=== PATIENT | male | born 1990 | race African-American/Black ===

== ENCOUNTER 2019-02-16 19:17 | Emergency (ER) | payer OTHER, SELFPAY ==
--- NOTE | 2019-02-16 19:55 | ER ---
Nurse's Notes [facility] Name: Rowdy De La O Jr Age: 28 yrs Sex: Male : 1990 Arrival Date: 02/16/2019 Time: 19:19 Bed 24 Private MD: Diagnosis: Foreign body sensation in throat Presentation: 02/16 19:26 Presenting complaint: Patient states: possible ingestion of toothpick on Saturday. pt ak1 c/o scratchy throat on Saturday. no drooling noted, no resp distress noted. Transition of care: patient was not received from another setting of care. Onset of symptoms is unknown. Risk Assessment: Do you want to hurt yourself or someone else? Patient reports no desire to harm self or others. Initial Sepsis Screen: Does the patient meet any 2 criteria? No. Patient's initial sepsis screen is negative. Does the patient have a suspected source of infection? No. Patient's initial sepsis screen is negative. Care prior to arrival: None. 19:26 Method Of Arrival: Ambulatory ak1 19:26 Acuity: MT 4 ak1 Triage Assessment: 19:27 General: Appears in no apparent distress. Behavior is calm, cooperative. Pain: ak1 Complains of pain in neck. EENT: Throat is clear. Neuro: No deficits noted. Cardiovascular: No deficits noted. Respiratory: No deficits noted. GI: No signs and/or symptoms were reported involving the gastrointestinal system. : No signs and/or symptoms were reported regarding the genitourinary system. Derm: No signs and/or symptoms reported regarding the dermatologic system. Musculoskeletal: No signs and/or symptoms reported regarding the musculoskeletal system. Historical: - Allergies: 19:27 No Known Allergies; ak1 - Home Meds: 19:27 None [Active]; ak1 - PMHx: 19:27 None; ak1 - PSHx: 19:27 left shoulder sx; ak1 - Immunization history:: Adult Immunizations unknown. - Social history:: Smoking status: Patient/guardian denies using tobacco. - Ebola Screening: : No symptoms or risks identified at this time. - Family history:: not pertinent. - Hospitalizations: : No recent hospitalization is reported. Screenin:28 Abuse screen: Denies threats or abuse. Denies injuries from another. Nutritional ak1 screening: No deficits noted. Tuberculosis screening: No symptoms or risk factors identified. Fall Risk None identified. Assessment: 19:35 Reassessment: See Triage assessment. ca1 20:03 Reassessment: Patient appears in no apparent distress at this time. Patient and/or ca1 family updated on plan of care and expected duration. Pain level reassessed. Patient is alert, oriented x 3, equal unlabored respirations, skin warm/dry/pink. 20:06 Reassessment: patient refused to undergo CT scan. advised to seek consult with ENT rv doctor after discharge. Vital Signs: 19:27 BP 140 / 87; Pulse 71; Resp 16; Temp 99.1; Pulse Ox 100% on R/A; Weight 86.18 kg (R); ak1 Height 5 ft. 11 in. (180.34 cm) (R); Pain 0/10; 19:27 Body Mass Index 26.50 (86.18 kg, 180.34 cm) ak1 ED Course: 19:19 Patient arrived in ED. ag3 19:27 Triage completed. ak1 19:27 Arm band placed on Patient placed in an exam room, on a stretcher, Patient notified of ak1 wait time. 19:28 Patient has correct armband on for positive identification. Bed in low position. Call ak1 light in reach. Side rails up X 1. 19:29 Joleen Galindo RN is Primary Nurse. ca1 19:38 Wayne Lr MD is Attending Physician. rn 19:54 Ernestina Molina MD is Referral Physician. rn 20:07 No provider procedures requiring assistance completed. Patient did not have IV access ca1 during this emergency room visit. Administered Medications: No medications were administered Outcome: 19:55 Discharge ordered by . rn 20:07 Discharged to home ambulatory. rv 20:07 Condition: good 20:07 Discharge instructions given to patient, family, Instructed on discharge instructions, follow up and referral plans. Demonstrated understanding of instructions, follow-up care. 20:08 Patient left the ED. rv Signatures: Wayne Lr MD MD rn Krenek, Amber, RN RN ak1 Rolando Boston RN RN Daysi Weller 3 Joleen Galindo RN RN ca1 Corrections: (The following items were deleted from the chart) 20:06 20:06 Reassessment: [facility] ca1
--- NOTE | 2019-02-16 19:55 | EDPHYS ---
Physician Documentation [facility] Name: Rowdy De La O Jr Age: 28 yrs Sex: Male : 1990 Arrival Date: 02/16/2019 Time: 19:19 Bed 24 Private MD: ED Physician Wayne Lr HPI: 02/16 19:49 This 28 yrs old Black Male presents to ER via Ambulatory with complaints of Foreign rn Body In Throat. 19:49 The patient presents with a foreign body sensation in the throat. The patient describes rn throat pain as foreign body sensation. Onset: The symptoms/episode began/occurred yesterday. Severity of symptoms: At their worst the symptoms were mild, in the emergency department the symptoms are unchanged. Associated signs and symptoms: The patient has no apparent associated signs or symptoms, Pertinent negatives chest pain, chills, cough, diarrhea, dysphagia, fever, flu-like symptoms, rhinorrhea, shortness of breath. The patient has not experienced similar symptoms in the past. REports woke up yesterday with foreign body sensation in throat, does not recall event where he accidentally swallowed something, no fever, is eating fine, states just had pizza without problem, able to tolerate liquids. No trauma. Does not feel sick. NO hemoptysis or hematemesis.. Historical: - Allergies: 19:27 No Known Allergies; ak1 - Home Meds: 19:27 None [Active]; ak1 - PMHx: 19:27 None; ak1 - PSHx: 19:27 left shoulder sx; ak1 - Immunization history:: Adult Immunizations unknown. - Social history:: Smoking status: Patient/guardian denies using tobacco. - Ebola Screening: : No symptoms or risks identified at this time. - Family history:: not pertinent. - Hospitalizations: : No recent hospitalization is reported. ROS: 19:49 Constitutional: Negative for fever, chills, and weight loss, Eyes: Negative for injury, rn pain, redness, and discharge, ENT: + foreign body sensation in throat Neck: Negative for injury, pain, and swelling, Cardiovascular: Negative for chest pain, palpitations, and edema, Respiratory: Negative for shortness of breath, cough, wheezing, and pleuritic chest pain, Abdomen/GI: Negative for abdominal pain, nausea, vomiting, diarrhea, and constipation, MS/Extremity: Negative for injury and deformity, Neuro: Negative for headache, weakness, numbness, tingling, and seizure. Exam: 19:49 Constitutional: This is a well developed, well nourished patient who is awake, alert, rn and in no acute distress. Using phone, legs crossed in bed, looks very comfortable. Head/Face: Normocephalic, atraumatic. Eyes: Pupils equal round and reactive to light, extra-ocular motions intact. Lids and lashes normal. Conjunctiva and sclera are non-icteric and not injected. Cornea within normal limits. Periorbital areas with no swelling, redness, or edema. ENT: Nares patent. No nasal discharge, no septal abnormalities noted. Oropharynx with no redness, swelling, or masses, exudates, or evidence of obstruction, uvula midline. Mucous membranes moist. Neck: Trachea midline, no thyromegaly or masses palpated, and no cervical lymphadenopathy. Supple, full range of motion without nuchal rigidity, or vertebral point tenderness. No Meningismus. Skin: Warm, dry with normal turgor. Normal color with no rashes, no lesions, and no evidence of cellulitis. MS/ Extremity: Pulses equal, no cyanosis. Neurovascular intact. Full, normal range of motion. Equal circumference. Neuro: Awake and alert, GCS 15, oriented to person, place, time, and situation. Cranial nerves II-XII grossly intact. Motor strength 5/5 in all extremities. Sensory grossly intact. Cerebellar exam normal. Normal gait. Vital Signs: 19:27 BP 140 / 87; Pulse 71; Resp 16; Temp 99.1; Pulse Ox 100% on R/A; Weight 86.18 kg (R); ak1 Height 5 ft. 11 in. (180.34 cm) (R); Pain 0/10; 19:27 Body Mass Index 26.50 (86.18 kg, 180.34 cm) ak1 MDM: 19:38 Patient medically screened. rn 19:49 Differential diagnosis: gastroesophageal reflux disease, group A strep tonsillitis, rn laryngitis, lymphoma, pharyngitis, tonsillitis, upper respiratory infection, viral syndrome. Differential diagnosis: foreign body. Data reviewed: vital signs, nurses notes. Refusal of service: The patient/guardian displays adequate decision making capability and despite a detailed discussion of alternatives, benefits, risks, and consequences refuses: CT Scan, all X-rays. ED course: After long discussion with patient, only test we can perform and I recommended here was CT neck to further evaluate, talked ot patient about expected length of stay for visit, he quickly declined, states feels ok, and would like to f/u with ENT. Risks explained, return precautions given and understood. No sign of obstruction. . Administered Medications: No medications were administered Disposition: 02/16/19 19:55 Discharged to Home. Impression: Foreign body sensation in throat. - Condition is Stable. - Medication Reconciliation Form, Thank You Letter, Antibiotic Education, Prescription Opioid Use form. - Follow up: Ernestina Molina MD; When: As needed; Reason: Recheck today's complaints, Re-evaluation by your physician. - Problem is new. - Symptoms are unchanged. Signatures: Wayne Lr MD MD rn Krenek, Amber, RN RN ak1 Rolando Boston RN RN rv Corrections: (The following items were deleted from the chart) 20: 19:55 02/16/2019 19:55 Discharged to Home. Impression: Foreign body sensation in rv throat. Condition is Stable. Forms are Medication Reconciliation Form, Thank You Letter, Antibiotic Education, Prescription Opioid Use. Follow up: Ernestina Molina; When: As needed; Reason: Recheck today's complaints, Re-evaluation by your physician. Problem is new. Symptoms are unchanged. rn
== END 2019-02-16 20:08 | disposition home or self-care (01) ==
LOC: ER 19:17
DX: R09.89 Other specified symptoms and signs involving the circulatory and respiratory systems (principal)
CPT/HCPCS: 99281